=== PATIENT | female | born 1940 | race Caucasian/White ===

== ENCOUNTER → 2016-10-01 | Outpatient (REF) | payer MEDICARE, OTHER ==
[~2016-10-01] MED LIST: ASTELIN; CALCTAB7 PO; COLA100C2 OR; DILA100C OR; DRISDOL PO; EYECAP PO; FLON0.05; LEVO25TA2 OR; MULTIVIT PO; PRIMI25TA OR; VIT D 2000 PO
[2016-10-01 12:44] LABS: MEAN CORPUSCULAR HGB CONC 34.3 g/dl (32.0-36.5); MEAN CORPUSCULAR VOLUME 99.1 fl (80.0-96.0); RED CELL DISTRIBUTION WIDTH 12.9 % (11.5-14.5); WHITE BLOOD COUNT 5.3 K/mm3 (4.0-10.0)
[2016-10-01 13:17] LABS: ALBUMIN 3.4 GM/DL (3.2-5.2); ALBUMIN/GLOBULIN RATIO 1.06 (1.00-1.93); ALKALINE PHOSPHATASE 158 U/L (45-117); ALT/SGPT 22 U/L (12-78); ANION GAP 8 MEQ/L (8-16); AST/SGOT 16 U/L (15-37); BILIRUBIN,TOTAL 0.4 MG/DL (0.2-1.0); BLOOD UREA NITROGEN 12 MG/DL (7-18); CALCIUM LEVEL 8.5 MG/DL (8.8-10.2); CARBON DIOXIDE LEVEL 26 MEQ/L (21-32); CHLORIDE LEVEL 109 MEQ/L (98-107); FREE T4 0.89 NG/DL (0.76-1.46); GLOMERULAR FILTRATION RATE > 60.0 (>39); GLUCOSE, FASTING 99 MG/DL (83-110); SODIUM LEVEL 143 MEQ/L (136-145); TOTAL PROTEIN 6.6 GM/DL (6.4-8.2)
== END ==
LOC: M SFHCADAM 10:34
PROVIDERS: ATTEND Family Medicine
DX: R60.0 Localized edema (principal); E03.9 Hypothyroidism, unspecified
CPT/HCPCS: 80053; 83880; 84439; 84443; 85027; G0463

== ENCOUNTER → 2016-10-28 | Outpatient (CLI) | payer MEDICARE, OTHER ==
--- NOTE | 2016-10-30 15:10 | DEXA ---
AP SPINE L1 - L4 1.076 -1.0 0.8 LT FEMUR TOTAL 0.770 -1.9 -0.2 RT FEMUR TOTAL 0.777 -1.8 -0.1 TOTAL BODY TOTAL OTHER DUAL FEMUR FRAX* ASSESSMENT Risk factors: None. 10 year probability of fracture Major osteoporotic fracture 11.3 % Hip fracture 2.8 % COMMENTS: There is low bone density of the spine and hips. The increased density of the spine does not represent a significant change. The increased density of the left hip does represent a significant change. The increased density of the right hip does represent a significant change. The density of the spine has decreased 3.3% since the initial exam on 1999. The spine density has increased 1.2% since the most recent exam on 10/06/2008. The density of the left hip has increased 1.7% since the initial exam on 1999. The density of the left hip has increased 4.1% since the most recent exam on . The density of the right hip has increased 1.2% since the initial exam on 1999. The density of the right hip has increased 9.3% since the most recent exam on . FOLLOW-UP: Recommendation for the next bone density exam: 2 years. GEORGE
== END ==
LOC: M WHC 14:04
PROVIDERS: ATTEND Family Medicine
DX: M81.0 Age-related osteoporosis without current pathological fracture (principal)

== ENCOUNTER → 2016-11-04 | Outpatient (CLI) | payer MEDICARE, OTHER ==
--- NOTE | 2016-11-04 15:45 | REPMRS ---
Patient History The patient states she has not had a clinical breast exam in over a year. Patient is postmenopausal. Family history of colorectal cancer in mother at age 50 or over. Benign excisional biopsy of the left breast, 1967. Digital Woman Screen Mammo: November 04, 2016 - Exam #: [id number] Bilateral CC and MLO view(s) were taken. Technologist: Kim Tate, Technologist Prior study comparison: September 27, 2008, digital bilateral screening mammo performed at [facility]. January 15, 2005, bilateral screening mammogram performed at [facility]. FINDINGS: There are scattered fibroglandular densities. There is a fairly symmetric fibroglandular pattern in both breasts. There has been no interval development of masses, areas of architectural distortion or clusters of microcalcifications typical of malignancy. ASSESSMENT: BI-RADS/ACR category 2 mammogram. Benign finding(s). Recommendation Routine screening mammogram of both breasts in 1 year (for women over age 40). This mammogram was interpreted with the aid of an FDA-approved computer-aided dectection system. Electronically Signed By: Carlo Rtaliff MD 11/04/16 0929
== END ==
LOC: M WHC 13:50
PROVIDERS: ATTEND Family Medicine
DX: Z12.31 Encounter for screening mammogram for malignant neoplasm of breast (principal); R92.8 Other abnormal and inconclusive findings on diagnostic imaging of breast

== ENCOUNTER → 2016-12-11 | Outpatient (CLI) | payer MEDICARE, OTHER ==
[~2016-12-11] MED LIST changes: +AZEL0.1S3; +CENTTAB PO; +CHLO25TA GT; +DILA100C PO; +DRIS50002 PO; +LEVO-89 PO; +MAGN250T7 PO; +PRIMI25TA PO; +TYLETAB14 PO
--- NOTE | 2016-12-11 19:23 | REP ---
LEFT FOOT COMPLETE: 12/11/2016: Clinical history: Left foot pain. Trauma 4 days ago with hyperflexion left toes and bruising about the 5th digit. Comparison: 05/11/2007. Findings: Four views show plantar and Achilles tendons spurs. Contour changes of the distal metaphysis of the 3rd and 4th metatarsals are noted on oblique views. This may be old or acute. Please correlate clinically. Also some irregularity of the lateral aspect of the distal head of the 5th metatarsal. Phalanges and IP joints grossly intact except for some degenerative changes IP joint and MCP joint of the great toe. No other findings. Impression: 1. Questionable nondisplaced fractures with contour irregularities in distal metaphyses of the 3rd and 4th metatarsals and the lateral aspect 5th metatarsal head. Please correlate clinically for point tenderness and it may help differentiate between new and old. Signed by Tobias Martin MD 12/11/2016 08:26 P
== END ==
LOC: M WUC 17:03
PROVIDERS: ATTEND Physician Assistant
DX: M79.672 Pain in left foot (principal)

== ENCOUNTER 2017-01-08 14:59 | Emergency (ER) | payer MEDICARE, OTHER ==
[~2017-01-08] VITALS: Ht 160 cm; Wt 146.8 kg
[~2017-01-08 14:59] MED LIST changes: -AZEL0.1S3; -CENTTAB PO; -CHLO25TA GT; -DILA100C PO; -DRIS50002 PO; -LEVO-89 PO; -MAGN250T7 PO; -PRIMI25TA PO; -TYLETAB14 PO
[2017-01-08] MEDS ORDERED: DRIS50002 PO (15:21)
[2017-01-08] MEDS ORDERED: MAGN250T7 PO (15:21)
[2017-01-08] MEDS ORDERED: CENTTAB PO (15:21)
[2017-01-08] MEDS ORDERED: CHLO25TA GT (15:21)
[2017-01-08] MEDS ORDERED: AZEL0.1S3 (15:21)
[2017-01-08] MEDS ORDERED: LEVO-89 PO (15:21)
[2017-01-08] MEDS ORDERED: DILA100C PO (15:21)
[2017-01-08] MEDS ORDERED: PRIMI25TA PO (15:21)
[2017-01-08] MEDS ORDERED: ACETAMINOPH W/CODEINE #3 TAB UD PO ONE (16:30)
[2017-01-08] MEDS ORDERED: TYLETAB14 PO (17:57)
[2017-01-08 18:07] VITALS: BP 150/88
--- NOTE | 2017-01-08 18:27 | REP ---
LEFT SHOULDER: Three views of the left shoulder are performed. There is a mildly displaced fracture of the proximal humerus involving the greater tuberosity. No other acute fracture or dislocation is seen. There is mild narrowing and spurring at the glenohumeral and acromioclavicular joints. There appears to be some ill defined sclerosis centrally in the humeral head which could be related to the bone infarct or enchondroma. Signed by Carlo Ratliff MD 01/09/2017 09:01 A
--- NOTE | 2017-01-08 18:28 | REP ---
Chest x-ray: Two views: History: Fracture humeral head. Findings: PA and lateral views of the chest show clear symmetrically aerated lungs and sharp pleural angles. Heart is not enlarged. The aorta somewhat tortuous. Pulmonary vasculature is not increased. No significant bony abnormality is seen. Impression: No active disease. Signed by Azael Colvin MD 01/09/2017 08:52 A
--- NOTE | 2017-01-08 18:29 | REP ---
LEFT HUMERUS: 01/08/2017. Clinical history: Trauma, humeral head fracture. Comparison: Left shoulder series this date. Findings: The greater tuberosity humeral head fracture with avulsion fracture line extending down into the proximal humeral metaphysis (surgical neck) is noted. Shaft of the humerus without fracture, focal lesions. Distal portion also unremarkable. Impression: 1. Greater tuberosity humeral head avulsion fracture with a single large fragment with a few millimeters of distraction and displacement. No subluxation, dislocation about the shoulder or gross elbow abnormality. Signed by Tobias Martin MD 01/09/2017 04:43 P
--- NOTE | 2017-01-08 19:09 | REP ---
RIGHT KNEE SERIES: Four views of the right are performed. There is no acute fracture or dislocation. There is mild medial joint space narrowing. There is diffuse spurring. There is chondrocalcinosis. There is a large joint effusion. IMPRESSION: No fracture or dislocation. Degenerative changes. Large joint effusion. Signed by Carlo Ratliff MD 01/09/2017 09:02 A
--- NOTE | 2017-01-09 16:31 | ED PDOC ---
Post-Departure Follow-Up ncog faxed formal report of left shoulder film for fu Luciano Farrar MD Jan 09, 2017 16:31
== END 2017-01-08 19:23 | disposition home or self-care (01) ==
LOC: M ED 14:59
DX: S42.292A Other displaced fracture of upper end of left humerus, initial encounter for closed fracture (principal); M25.461 Effusion, right knee; W19.XXXA Unspecified fall, initial encounter; Y92.239 Unspecified place in hospital as the place of occurrence of the external cause; Y93.89 Activity, other specified; Y99.9 Unspecified external cause status; G40.909 Epilepsy, unspecified, not intractable, without status epilepticus; Z79.899 Other long term (current) drug therapy; Z88.0 Allergy status to penicillin

== ENCOUNTER → 2017-09-30 | Outpatient (REF) | payer MEDICARE, OTHER ==
[2017-09-30 13:34] LABS: TOTAL 25(OH) VITAMIN D 52.5 NG/ML (30.0-100.0)
[2017-09-30 13:41] LABS: ANION GAP 6 MEQ/L (8-16); BLOOD UREA NITROGEN 18 MG/DL (7-18); CALCIUM LEVEL 10.4 MG/DL (8.8-10.2); CARBON DIOXIDE LEVEL 32 MEQ/L (21-32); CHLORIDE LEVEL 105 MEQ/L (98-107); CREATININE FOR GFR 0.92 MG/DL (0.55-1.30); FREE T4 0.82 NG/DL (0.76-1.46); GLOMERULAR FILTRATION RATE > 60.0 (>39); GLUCOSE, FASTING 93 MG/DL (70-100); POTASSIUM SERUM 3.7 MEQ/L (3.5-5.1); SODIUM LEVEL 143 MEQ/L (136-145); THYROID STIMULATING HORMONE 0.394 uIU/ML (0.358-3.740)
== END ==
LOC: M SFHCADAM 10:16
DX: E03.9 Hypothyroidism, unspecified (principal); E55.9 Vitamin D deficiency, unspecified
CPT/HCPCS: 84443

== ENCOUNTER 2018-04-14 11:17 | Inpatient (IN) | payer MEDICARE, OTHER ==
[2018-04-14 12:19] LABS: BASO % 0.5 % (0.0-1.0); EOS # 0.1 10^3/uL (0.0-0.50); EOS % 1.6 % (0.0-3.0); HEMATOCRIT 35.5 % (36.0-47.0); HEMOGLOBIN 12.5 g/dl (12.0-15.5); IMMATURE GRANULOCYTE % 0.3 % (0-3.0); LYMPH # 1.4 10^3/uL (1.5-4.5); LYMPH % 21.6 % (24.0-44.0); MEAN CORPUSCULAR HEMOGLOBIN 33.9 pg (27.0-33.0); MEAN CORPUSCULAR HGB CONC 35.2 g/dl (32.0-36.5); MEAN CORPUSCULAR VOLUME 96.2 fl (80.0-96.0); MONO # 0.9 10^3/uL (0.0-0.8); MONO % 14.4 % (0.0-5.0); NEUTROPHILS # 3.9 10^3/uL (1.8-7.7); NEUTROPHILS % 61.6 % (36.0-66.0); PLATELET COUNT, AUTOMATED 213 10^3/uL (150-450); RED BLOOD COUNT 3.69 10^6/uL (4.00-5.40); RED CELL DISTRIBUTION WIDTH 12.8 % (11.5-14.5); WHITE BLOOD COUNT 6.3 10^3/uL (4.0-10.0)
[2018-04-14 12:43] LABS: ALBUMIN 3.3 GM/DL (3.2-5.2); ALBUMIN/GLOBULIN RATIO 1.03 (1.00-1.93); ALKALINE PHOSPHATASE 138 U/L (45-117); ALT/SGPT 30 U/L (12-78); ANION GAP 8 MEQ/L (8-16); AST/SGOT 34 U/L (7-37); BILIRUBIN,DIRECT 0.2 MG/DL (0.0-0.2); BILIRUBIN,TOTAL 0.5 MG/DL (0.2-1.0); BLOOD UREA NITROGEN 20 MG/DL (7-18); CALCIUM LEVEL 9.4 MG/DL (8.8-10.2); CARBON DIOXIDE LEVEL 29 MEQ/L (21-32); CHLORIDE LEVEL 103 MEQ/L (98-107); CREATININE FOR GFR 0.95 MG/DL (0.55-1.30); GLOMERULAR FILTRATION RATE > 60.0 (>39); GLUCOSE, FASTING 99 MG/DL (70-100); PHENYTOIN (DILANTIN) 16.6 UG/ML (10.0-20.0); POTASSIUM SERUM 3.2 MEQ/L (3.5-5.1); SODIUM LEVEL 140 MEQ/L (136-145); TOTAL PROTEIN 6.5 GM/DL (6.4-8.2)
[2018-04-14 14:00] LABS: KETONE, URINE AUTO RFX NEGATIVE (NEGATIVE); MUCUS, URINE RFX SMALL (NEGATIVE); NITRITE, URINE AUTO RFX NEGATIVE (NEGATIVE); RBC, URINE AUTO RFX 1 /HPF (0-3); SPECIFIC GRAVITY UR AUTO RFX 1.005 (1.002-1.035); SQUAM EPITHELIAL CELL UR AURFX 1 /HPF (0-6); WBC, URINE AUTO RFX 7 /HPF (0-3)
[2018-04-14] MEDS: ACETAMINOPHEN TAB 650MG DOSE (2X325MG) PO (14:12)
[2018-04-14 14:46] LABS: LEUKOCYTE ESTERASE UR AUTO RFX 1+ (NEGATIVE)
[2018-04-14] MEDS: POTASSIUM CHLORIDE 10 MEQ SR TABLET PO (19:12)
[2018-04-14] MEDS: PHENYTOIN ER 100 MG CAP PO (21:20)
[2018-04-14] MEDS: PRIMIDONE 250 MG TAB PO (23:18)
[2018-04-15 05:57] LABS: ALBUMIN/GLOBULIN RATIO 0.94 (1.00-1.93); ALKALINE PHOSPHATASE 122 U/L (45-117); ALT/SGPT 31 U/L (12-78); ANION GAP 7 MEQ/L (8-16); AST/SGOT 34 U/L (7-37); BILIRUBIN,TOTAL 0.4 MG/DL (0.2-1.0); BLOOD UREA NITROGEN 17 MG/DL (7-18); CALCIUM LEVEL 9.6 MG/DL (8.8-10.2); CARBON DIOXIDE LEVEL 27 MEQ/L (21-32); CHLORIDE LEVEL 105 MEQ/L (98-107); CREATININE FOR GFR 0.75 MG/DL (0.55-1.30); GLOMERULAR FILTRATION RATE > 60.0 (>39); GLUCOSE, FASTING 102 MG/DL (70-100); POTASSIUM SERUM 3.4 MEQ/L (3.5-5.1); SODIUM LEVEL 139 MEQ/L (136-145); TOTAL PROTEIN 6.2 GM/DL (6.4-8.2)
[2018-04-15] MEDS: LEVOTHYROXINE 100MCG TABLET (0.1MG) PO (06:10)
[2018-04-15] MEDS: ENOXAPARIN 40 MG/0.4 ML SYRINGE (J1650) SC (09:34)
[2018-04-15] MEDS: PRIMIDONE 250 MG TAB PO ×2 (09:34→21:46)
[2018-04-15] MEDS: PARoxetine 20 MG TAB PO (09:34)
[2018-04-15] MEDS: CHLORTHALIDONE 25 MG TAB PO (09:34)
[2018-04-15] MEDS: PHENYTOIN ER 100 MG CAP PO ×2 (09:34→21:47)
[2018-04-15] MEDS: MULTIVITAMINS/MINERALS THERAP 1 TAB PO (09:34)
[2018-04-15] MEDS: POTASSIUM CHLORIDE 10 MEQ SR TABLET PO (12:31)
[2018-04-15] MEDS: ACETAMINOPHEN 325 MG TAB PO (12:37)
[2018-04-16] MEDS: LEVOTHYROXINE 100MCG TABLET (0.1MG) PO (06:03)
[2018-04-16 06:33] LABS: ANION GAP 7 MEQ/L (8-16); BLOOD UREA NITROGEN 20 MG/DL (7-18); CALCIUM LEVEL 9.4 MG/DL (8.8-10.2); CARBON DIOXIDE LEVEL 28 MEQ/L (21-32); CHLORIDE LEVEL 105 MEQ/L (98-107); CREATININE FOR GFR 0.93 MG/DL (0.55-1.30); GLOMERULAR FILTRATION RATE > 60.0 (>39); GLUCOSE, FASTING 97 MG/DL (70-100); POTASSIUM SERUM 3.9 MEQ/L (3.5-5.1); SODIUM LEVEL 140 MEQ/L (136-145)
[2018-04-16] MEDS: POTASSIUM CHLORIDE 10 MEQ SR TABLET PO (10:47)
[2018-04-16] MEDS: PRIMIDONE 250 MG TAB PO ×2 (10:47→21:47)
[2018-04-16] MEDS: CHLORTHALIDONE 25 MG TAB PO (10:47)
[2018-04-16] MEDS: ENOXAPARIN 40 MG/0.4 ML SYRINGE (J1650) SC (10:48)
[2018-04-16] MEDS: MULTIVITAMINS/MINERALS THERAP 1 TAB PO (10:48)
[2018-04-16] MEDS: PARoxetine 20 MG TAB PO (10:48)
[2018-04-16] MEDS: PREVNAR 13 VACCINE SYRINGE (CPT CODE:90670) IM (10:49)
[2018-04-16] MEDS: PHENYTOIN ER 100 MG CAP PO ×2 (10:51→21:46)
[2018-04-16] MEDS: ACETAMINOPHEN 325 MG TAB PO (16:07)
[2018-04-17] MEDS: LEVOTHYROXINE 100MCG TABLET (0.1MG) PO (06:22)
[2018-04-17 06:58] LABS: HEMATOCRIT 32.8 % (36.0-47.0); HEMOGLOBIN 11.3 g/dl (12.0-15.5); MEAN CORPUSCULAR HEMOGLOBIN 33.8 pg (27.0-33.0); MEAN CORPUSCULAR HGB CONC 34.5 g/dl (32.0-36.5); MEAN CORPUSCULAR VOLUME 98.2 fl (80.0-96.0); PLATELET COUNT, AUTOMATED 210 10^3/uL (150-450); RED BLOOD COUNT 3.34 10^6/uL (4.00-5.40); RED CELL DISTRIBUTION WIDTH 12.8 % (11.5-14.5); WHITE BLOOD COUNT 5.5 10^3/uL (4.0-10.0)
[2018-04-17 07:17] LABS: ANION GAP 8 MEQ/L (8-16); BLOOD UREA NITROGEN 19 MG/DL (7-18); CALCIUM LEVEL 8.7 MG/DL (8.8-10.2); CARBON DIOXIDE LEVEL 28 MEQ/L (21-32); CHLORIDE LEVEL 106 MEQ/L (98-107); CREATININE FOR GFR 0.82 MG/DL (0.55-1.30); GLOMERULAR FILTRATION RATE > 60.0 (>39); GLUCOSE, FASTING 91 MG/DL (70-100); POTASSIUM SERUM 3.5 MEQ/L (3.5-5.1); SODIUM LEVEL 142 MEQ/L (136-145)
[2018-04-17 07:38] LABS: TOTAL PROTEIN 5.8 GM/DL (6.4-8.2)
[2018-04-17] MEDS: PHENYTOIN ER 100 MG CAP PO ×2 (09:00→20:50)
[2018-04-17] MEDS: CHLORTHALIDONE 25 MG TAB PO (09:11)
[2018-04-17] MEDS: PRIMIDONE 250 MG TAB PO ×2 (09:11→20:50)
[2018-04-17] MEDS: PARoxetine 20 MG TAB PO (09:11)
[2018-04-17] MEDS: ENOXAPARIN 40 MG/0.4 ML SYRINGE (J1650) SC (09:11)
[2018-04-17] MEDS: MULTIVITAMINS/MINERALS THERAP 1 TAB PO (09:12)
[2018-04-17] MEDS: POTASSIUM CHLORIDE 10 MEQ SR TABLET PO (09:12)
[2018-04-17 10:28] LABS: VITAMIN B12 LEVEL 200 PG/ML (247-911)
[2018-04-17 11:49] LABS: ALBUMIN 3.14 GM/DL (3.29-5.55); ALBUMIN % 54.2 % (55.8-66.1); ALPHA-1-GLOBULIN % 5.6 % (2.9-4.9); ALPHA-1-GLOBULINS 0.32 GM/DL (0.17-0.41); ALPHA-2-GLOBULINS % 12.1 % (7.1-11.8); BETA-1-GLOBULINS 0.32 GM/DL (0.28-0.60); BETA-1-GLOBULINS % 5.6 % (4.7-7.2); BETA-2-GLOBULINS 0.37 GM/DL (0.19-0.55); BETA-2-GLOBULINS % 6.4 % (3.2-6.5); GAMMA GLOBULIN % 16.1 % (11.1-18.8); GAMMA GLOBULINS 0.93 GM/DL (0.65-1.58)
[2018-04-17] MEDS: ACETAMINOPHEN 325 MG TAB PO ×2 (12:41→20:53)
[2018-04-18] MEDS: LEVOTHYROXINE 100MCG TABLET (0.1MG) PO (05:37)
[2018-04-18 07:00] LABS: ANION GAP 6 MEQ/L (8-16); BLOOD UREA NITROGEN 19 MG/DL (7-18); CALCIUM LEVEL 8.6 MG/DL (8.8-10.2); CARBON DIOXIDE LEVEL 27 MEQ/L (21-32); CHLORIDE LEVEL 107 MEQ/L (98-107); CREATININE FOR GFR 0.78 MG/DL (0.55-1.30); GLOMERULAR FILTRATION RATE > 60.0 (>39); GLUCOSE, FASTING 97 MG/DL (70-100); POTASSIUM SERUM 3.5 MEQ/L (3.5-5.1); SODIUM LEVEL 140 MEQ/L (136-145)
[2018-04-18] MEDS: MULTIVITAMINS/MINERALS THERAP 1 TAB PO (09:30)
[2018-04-18] MEDS: PRIMIDONE 250 MG TAB PO ×2 (09:30→20:18)
[2018-04-18] MEDS: ENOXAPARIN 40 MG/0.4 ML SYRINGE (J1650) SC (09:30)
[2018-04-18] MEDS: CHLORTHALIDONE 25 MG TAB PO (09:30)
[2018-04-18] MEDS: PARoxetine 20 MG TAB PO (09:30)
[2018-04-18] MEDS: PHENYTOIN ER 100 MG CAP PO ×2 (09:31→20:18)
[2018-04-18] MEDS: POTASSIUM CHLORIDE 10 MEQ SR TABLET PO (09:31)
[2018-04-18] MEDS: ACETAMINOPHEN 325 MG TAB PO ×2 (10:49→21:08)
[2018-04-19] MEDS: LEVOTHYROXINE 100MCG TABLET (0.1MG) PO (06:01)
[2018-04-19] MEDS: PARoxetine 20 MG TAB PO (09:19)
[2018-04-19] MEDS: PHENYTOIN ER 100 MG CAP PO ×2 (09:19→20:08)
[2018-04-19] MEDS: CHLORTHALIDONE 25 MG TAB PO (09:20)
[2018-04-19] MEDS: ENOXAPARIN 40 MG/0.4 ML SYRINGE (J1650) SC (09:20)
[2018-04-19] MEDS: MULTIVITAMINS/MINERALS THERAP 1 TAB PO (09:20)
[2018-04-19] MEDS: POTASSIUM CHLORIDE 10 MEQ SR TABLET PO (09:20)
[2018-04-19] MEDS: PRIMIDONE 250 MG TAB PO ×2 (09:20→20:08)
[2018-04-20] MEDS: LEVOTHYROXINE 100MCG TABLET (0.1MG) PO (06:06)
[2018-04-20 06:11] LABS: HEMATOCRIT 33.4 % (36.0-47.0); HEMOGLOBIN 11.5 g/dl (12.0-15.5); MEAN CORPUSCULAR HEMOGLOBIN 33.2 pg (27.0-33.0); MEAN CORPUSCULAR HGB CONC 34.4 g/dl (32.0-36.5); MEAN CORPUSCULAR VOLUME 96.5 fl (80.0-96.0); PLATELET COUNT, AUTOMATED 217 10^3/uL (150-450); RED BLOOD COUNT 3.46 10^6/uL (4.00-5.40); WHITE BLOOD COUNT 4.4 10^3/uL (4.0-10.0)
[2018-04-20] MEDS: PRIMIDONE 250 MG TAB PO ×2 (08:48→21:08)
[2018-04-20] MEDS: PHENYTOIN ER 100 MG CAP PO ×2 (08:48→21:08)
[2018-04-20] MEDS: MULTIVITAMINS/MINERALS THERAP 1 TAB PO (08:49)
[2018-04-20] MEDS: PARoxetine 20 MG TAB PO (08:49)
[2018-04-20] MEDS: ENOXAPARIN 40 MG/0.4 ML SYRINGE (J1650) SC (08:49)
[2018-04-20] MEDS: CHLORTHALIDONE 25 MG TAB PO (08:49)
[2018-04-20] MEDS: POTASSIUM CHLORIDE 10 MEQ SR TABLET PO (08:50)
[2018-04-20] MEDS: ACETAMINOPHEN 325 MG TAB PO (21:10)
[2018-04-21] MEDS: LEVOTHYROXINE 100MCG TABLET (0.1MG) PO (05:43)
[2018-04-21] MEDS: CHLORTHALIDONE 25 MG TAB PO (09:22)
[2018-04-21] MEDS: PRIMIDONE 250 MG TAB PO ×2 (09:22→20:52)
[2018-04-21] MEDS: POTASSIUM CHLORIDE 10 MEQ SR TABLET PO (09:22)
[2018-04-21] MEDS: PARoxetine 20 MG TAB PO (09:23)
[2018-04-21] MEDS: MULTIVITAMINS/MINERALS THERAP 1 TAB PO (09:23)
[2018-04-21] MEDS: PHENYTOIN ER 100 MG CAP PO ×2 (09:24→20:53)
[2018-04-21] MEDS: ENOXAPARIN 40 MG/0.4 ML SYRINGE (J1650) SC (09:24)
[2018-04-21] MEDS: ACETAMINOPHEN 325 MG TAB PO ×2 (14:40→20:52)
[2018-04-22] MEDS: LEVOTHYROXINE 100MCG TABLET (0.1MG) PO (06:27)
[2018-04-22] MEDS: PRIMIDONE 250 MG TAB PO (09:09)
[2018-04-22] MEDS: PARoxetine 20 MG TAB PO (09:10)
[2018-04-22] MEDS: PHENYTOIN ER 100 MG CAP PO (09:10)
[2018-04-22] MEDS: POTASSIUM CHLORIDE 10 MEQ SR TABLET PO (09:11)
[2018-04-22] MEDS: CHLORTHALIDONE 25 MG TAB PO (09:11)
[2018-04-22] MEDS: MULTIVITAMINS/MINERALS THERAP 1 TAB PO (09:11)
[2018-04-22] MEDS: ENOXAPARIN 40 MG/0.4 ML SYRINGE (J1650) SC (09:12)
== END 2018-04-22 12:50 | disposition home health service (06) | DRG 92 ==
LOC: M MS5PR 04-19 17:15 → M MS4PR 04-16 17:08 → M ED 11:17 → M ED INP 16:11 → M PCU 22:06
DX: R29.6 Repeated falls (principal); Z68.43 Body mass index [BMI] 50.0-59.9, adult; R53.81 Other malaise; E87.6 Hypokalemia; E66.01 Morbid (severe) obesity due to excess calories; M17.2 Bilateral post-traumatic osteoarthritis of knee; M25.461 Effusion, right knee; M25.462 Effusion, left knee; E53.8 Deficiency of other specified B group vitamins; E03.9 Hypothyroidism, unspecified; E78.5 Hyperlipidemia, unspecified; G40.909 Epilepsy, unspecified, not intractable, without status epilepticus; Z88.0 Allergy status to penicillin; E04.1 Nontoxic single thyroid nodule

== ENCOUNTER → 2018-04-30 | Outpatient (REF) | payer MEDICARE, OTHER ==
[~2018-04-30] MED LIST changes: +AZEL0.1S NARES; +AZEL0.1S3; +B-12100010 PO; +CENTTAB PO; +CHLO25TA PO; +DILA100C PO; +DRIS50003 PO; +KLOR10TA76 PO; +LEVO-89 PO; +MAGN250T3 PO; +MAGN250T7 PO; +PAXI20TA29 PO; +PRIM250T8 PO; +PRIMI25TA PO; +TYLE325T5 PO; +TYLETAB14 PO
[2018-04-30 13:26] LABS: BLOOD UREA NITROGEN 19 MG/DL (7-18); CALCIUM LEVEL 10.4 MG/DL (8.8-10.2); CARBON DIOXIDE LEVEL 31 MEQ/L (21-32); CHLORIDE LEVEL 103 MEQ/L (98-107); CREATININE FOR GFR 0.95 MG/DL (0.55-1.30); GLOMERULAR FILTRATION RATE > 60.0 (>39); GLUCOSE, FASTING 94 MG/DL (70-100); MAGNESIUM LEVEL 2.5 MG/DL (1.8-2.4); POTASSIUM SERUM 4.2 MEQ/L (3.5-5.1); SODIUM LEVEL 142 MEQ/L (136-145)
== END ==
LOC: M SFHCADAM 10:12
PROVIDERS: ATTEND Physician Assistant
DX: R60.9 Edema, unspecified (principal); E87.6 Hypokalemia; E53.8 Deficiency of other specified B group vitamins
CPT/HCPCS: 80048; 83735; 86256; 96372; 99495; G0463; J3420

== ENCOUNTER → 2019-03-25 | Outpatient (REF) | payer MEDICARE, OTHER ==
[2019-03-25 17:00] LABS: HEMATOCRIT 36.4 % (36.0-47.0); HEMOGLOBIN 12.2 g/dl (12.0-15.5); MEAN CORPUSCULAR HEMOGLOBIN 33.1 pg (27.0-33.0); MEAN CORPUSCULAR HGB CONC 33.5 g/dl (32.0-36.5); MEAN CORPUSCULAR VOLUME 98.6 fl (80.0-96.0); PLATELET COUNT, AUTOMATED 234 10^3/uL (150-450); RED BLOOD COUNT 3.69 10^6/uL (4.00-5.40); WHITE BLOOD COUNT 6.7 10^3/uL (4.0-10.0)
[2019-03-25 17:38] LABS: ALBUMIN 3.4 GM/DL (3.2-5.2); ALT/SGPT 26 U/L (12-78); BILIRUBIN,TOTAL 0.4 MG/DL (0.2-1.0); BLOOD UREA NITROGEN 13 MG/DL (7-18); CALCIUM LEVEL 9.7 MG/DL (8.8-10.2); CARBON DIOXIDE LEVEL 28 MEQ/L (21-32); CHLORIDE LEVEL 110 MEQ/L (98-107); CHOLESTEROL LEVEL 174 MG/DL (<200); CHOLESTEROL RISK RATIO 3.107 (<5); CREATININE FOR GFR 0.75 MG/DL (0.55-1.30); FREE T4 0.74 NG/DL (0.76-1.46); GLOMERULAR FILTRATION RATE > 60.0 (>39); GLUCOSE, FASTING 91 MG/DL (70-100); HDL CHOLESTEROL 56 MG/DL (>40); LDL CHOLESTEROL 100 MG/DL (<100); NON-HDL-C 118 MG/DL; PHENYTOIN (DILANTIN) 14.3 UG/ML (10.0-20.0); POTASSIUM SERUM 4.1 MEQ/L (3.5-5.1); SODIUM LEVEL 140 MEQ/L (136-145); TOTAL 25(OH) VITAMIN D 26.8 NG/ML (30.0-100.0); TOTAL PROTEIN 6.9 GM/DL (6.4-8.2); TRIGLYCERIDES LEVEL 91 MG/DL (<150)
== END ==
LOC: M SFHCADAM 14:48
PROVIDERS: ATTEND Family Medicine
DX: F43.23 Adjustment disorder with mixed anxiety and depressed mood (principal); E03.9 Hypothyroidism, unspecified; E78.2 Mixed hyperlipidemia; G40.89 Other seizures; E55.9 Vitamin D deficiency, unspecified; Z23 Encounter for immunization
CPT/HCPCS: 80053; 80061; 80185; 80188; 82306; 84439; 84443; 85027; 90682; G0008; G0463

== ENCOUNTER → 2019-03-30 | Outpatient (CLI) | payer MEDICARE, OTHER ==
--- NOTE | 2019-03-31 08:52 | REP ---
CT abdomen and pelvis without IV or oral contrast: History: Adrenal mass. Comparison CT study of the chest April 14, 2018. No other comparison studies are available. 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 Lung bases are clear. The liver and the spleen are normal in size homogeneous in texture on noncontrast study. The right adrenal gland is normal. Left adrenal gland contains a lightly heterogeneous relatively low density well circumscribed 4.4 x 3.2 x 3.4 cm nodule. Mean Hounsfield unit density within the nodule is negative 2.8. This is compatible with a benign adrenal adenoma. It is unchanged from the April 14, 2018 prior study. No abnormalities noted in the pancreas. There is a cyst in the lateral aspect of the left kidney which measures 1.9 cm in diameter. This is also unchanged from the comparison CT. No retroperitoneal mass or adenopathy is seen. Normal caliber aorta. Normal appendix is seen. No uterine or adnexal abnormality is seen. Urinary bladder is unremarkable. Impression: Benign stable adrenal adenoma left side unchanged from the comparison study. Small stable left renal cyst. No acute intra-abdominal abnormality. Electronically Signed by Azael Colvin MD 03/31/2019 12:51 P
== END ==
LOC: M RAD 17:45
PROVIDERS: ATTEND Family Medicine
DX: E27.8 Other specified disorders of adrenal gland (principal)

== ENCOUNTER → 2019-06-11 | Outpatient (CLI) | payer MEDICARE, OTHER ==
[~2019-06-11] MED LIST changes: +APAP325T4 PO; +POTA10TA16 PO; +PRED20TA PO
--- NOTE | 2019-06-11 17:11 | REP ---
Right foot four views: Comparison is 03/29/2005. I suspect there is soft tissue edema over the dorsum. This should be confirmed clinically. There is mild joint space narrowing of the PIP, DIP MTP articulations consistent with early arthropathy. There is no fracture or dislocation. No calcification of foreign body. There are calcaneal plantar and Achilles spurs, unchanged. Impression: Arthropathy as described. No fracture or dislocation. Possible soft tissue edema over the dorsum. Electronically Signed by Carlo Hall MD 06/11/2019 05:03 P
--- NOTE | 2019-06-11 17:16 | REP ---
Right ankle four views: Comparison is 03/29/2005. There is abundant circumferential soft tissue versus soft tissue edema. Mineralization and joint spaces are unremarkable. There is no fracture or dislocation. There are calcaneal plantar and Achilles spurs, this is unchanged. Impression: Essentially negative right ankle except for abundant soft tissues versus soft tissue edema. Electronically Signed by Carlo Hall MD 06/11/2019 05:08 P
== END ==
LOC: M ADAMS 15:14
PROVIDERS: ATTEND Nurse Practitioner Family
DX: M19.071 Primary osteoarthritis, right ankle and foot (principal); M77.31 Calcaneal spur, right foot; M76.61 Achilles tendinitis, right leg

== ENCOUNTER 2019-06-14 16:43 | Inpatient (IN) | payer MEDICARE, OTHER ==
[~2019-06-14] VITALS: Ht 165.1 cm; Wt 141.7 kg
[~2019-06-14 16:43] MED LIST changes: -APAP325T4 PO; -POTA10TA16 PO; -PRED20TA PO
[2019-06-14 17:56] LABS: BASO % 0.4 % (0.0-1.0); EOS # 0.1 10^3/uL (0.0-0.5); HEMATOCRIT 38.2 % (36.0-47.0); LYMPH # 1.9 10^3/uL (1.5-5.0); LYMPH % 26.9 % (24.0-44.0); MEAN CORPUSCULAR HEMOGLOBIN 33.2 pg (27.0-33.0); MEAN CORPUSCULAR VOLUME 97.4 fl (80.0-96.0); MONO # 0.9 10^3/uL (0.0-0.8); MONO % 12.6 % (0.0-5.0); NEUTROPHILS # 4.1 10^3/uL (1.5-8.5); NEUTROPHILS % 57.5 % (36.0-66.0); PLATELET COUNT, AUTOMATED 204 10^3/uL (150-450); RED BLOOD COUNT 3.92 10^6/uL (4.00-5.40); WHITE BLOOD COUNT 7.1 10^3/uL (4.0-10.0)
--- NOTE | 2019-06-14 18:11 | REPVR ---
PROCEDURE INFORMATION: Exam: CT Head Without Contrast Exam date and time: 06/14/2019 5:14 PM Age: 78 years old Clinical indication: Injury or trauma; Fall; Initial encounter; Blunt trauma (contusions or hematomas); Additional info: Fell and hit head TECHNIQUE: Imaging protocol: Computed tomography of the head without contrast. Radiation optimization: All CT scans at this facility use at least one of these dose optimization techniques: automated exposure control; mA and/or kV adjustment per patient size (includes targeted exams where dose is matched to clinical indication); or iterative reconstruction. COMPARISON: CT Head without contrast 04/14/2018 12:41 PM FINDINGS: Brain: There is no evidence of intracranial bleed. There is a 1.6 cm calcified mass at the falx between the frontal lobes. This is slightly larger than the CT examination of 2018. This lesion is most consistent with a calcified meningioma. There is no evidence of mass effect. There is calcification of the carotid siphon bilaterally consistent with atherosclerotic changes. Ventricles: Normal appearing ventricles. Bones/joints: There is no evidence of fracture. Sinuses: Clear paranasal sinuses. Mastoid air cells: Clear mastoid air cells. Soft tissues: Unremarkable. IMPRESSION: 1. No evidence of fracture. 2. No evidence of bleed. 3. 1.6 cm chronic calcified meningioma at the falx anterior in position similar to the previous exam of 2018. Electronically signed by: Jani Maria On 06/14/2019 18:11:05 PM
[2019-06-14 18:21] LABS: ALBUMIN 3.3 GM/DL (3.2-5.2); ALT/SGPT 23 U/L (12-78); BILIRUBIN,TOTAL 0.3 MG/DL (0.2-1.0); BLOOD UREA NITROGEN 21 MG/DL (7-18); CALCIUM LEVEL 9.6 MG/DL (8.8-10.2); CARBON DIOXIDE LEVEL 30 MEQ/L (21-32); CHLORIDE LEVEL 104 MEQ/L (98-107); CK-MB VALUE MASS < 1.0 NG/ML (<3.6); CPK CREATINE PHOSPHOKINASE 39 U/L (26-192); CREATININE FOR GFR 0.86 MG/DL (0.55-1.30); GLOMERULAR FILTRATION RATE > 60.0 (>39); GLUCOSE, FASTING 97 MG/DL (70-100); MAGNESIUM LEVEL 2.1 MG/DL (1.8-2.4); MB/CK RELATIVE INDEX 2.56 (< OR =4); PHENYTOIN (DILANTIN) 24.1 UG/ML (10.0-20.0); POTASSIUM SERUM 3.2 MEQ/L (3.5-5.1); SODIUM LEVEL 139 MEQ/L (136-145); TOTAL PROTEIN 6.5 GM/DL (6.4-8.2); TROPONIN I < 0.02 NG/ML (< 0.10)
[2019-06-14] MEDS ORDERED: APAP325T4 PO (19:28)
[2019-06-14] MEDS ORDERED: POTA10TA16 PO (19:28)
[2019-06-14] MEDS ORDERED: PRED20TA PO (19:29)
[2019-06-14] MEDS ORDERED: ACETAMINOPHEN TAB 650MG DOSE (2X325MG) PO PRN (21:00)
[2019-06-14 23:00] VITALS: BP 131/68
[2019-06-14] MEDS ORDERED: POTASSIUM CHLORIDE 10 MEQ SR TABLET PO ONE (23:00)
[2019-06-14] MEDS: PRIMIDONE 250 MG TAB PO SCH (23:23)
[2019-06-14] MEDS: POTASSIUM CHLORIDE 10 MEQ SR TABLET PO SCH (23:23)
[2019-06-14] MEDS: NS 1,000 ML IV SCH (23:24)
--- NOTE | 2019-06-14 23:54 | HPEPDOC ---
General Date of Admission Jun 14, 2019 at 20:55 Date of Service: Jun 14, 2019 Attending Physician: ABDOULAYE RUIZ MD Chief Complaint The patient is a 78-year-old female admitted with a reason for visit of Dizziness;Phenytoin Toxicity;Seizure D/O. Source: Patient, Family Exam Limitations: No limitations Timing/Duration: Day(s) (3), Getting worse Associated Symptoms: Dizziness History of Present Illness 78 yo W with long standing history of epilepsy on dilantin/primodine with last known seizure 20y + ago, morbid obesity, RAZ, OA , HTN, HLD, depression who presents with dizziness and vertigo of 3 days duration, reporting no recent illness, URI symptoms, and only med change being having recently been starte don prednisone for her arthritis. She reports that the dizziness is not orthostatic in nature but is with moving her head with a spinning sensation thankfully thus far without nausea and emesis. She has not had any recent fever, chills, tremors, dysuria, change in eating and drinking habits, falls. She lives with her son who recently moved in after her , walks with a cane around the house and walker when outside. In the ED< vitals were Bp 155/72, HR 73, RR18, afebrile, saturating 97% on RA. Workup was notable for a stable calcified mengioma on CT head without acute pathology, elevated phenytoin level to 24.1 that was normal in 03/2019, WBC 7.1 Hgb 13, platelets 204, na 139, K 3.2, Cr 0.86, glucose 97, mag 2.1, normal LFTs. She is now being admitted for acute dizziness and vertigo 2/2 phenytoin toxicity with pending primodine levels. Home Medications Scheduled Azelastine HCl (Azelastine HCl) 0.1 % Spr, 2 SPRAY NARES QHS, (Reported) Chlorthalidone (Chlorthalidone) 25 Mg Tab, 25 MG PO DAILY, (Reported) Phenytoin Sodium Extended (Dilantin) 100 Mg Cap, 200 MG PO BID, (Reported) Potassium Chloride (Potassium Chloride) 10 Meq Tab.er.prt, 10 MEQ PO BID, (Reported) Prednisone (Prednisone) 20 Mg Tablet, 20 MG PO DAILY, (Reported) DAILY FOR 4 DAYS, STARTED 06/11/19 Primidone (Mysoline) 250 Mg Tab, 250 MG PO QAM, (Reported) Primidone (Primidone) 250 Mg Tab, 500 MG PO QHS, (Reported) Scheduled PRN Acetaminophen (Acetaminophen) 325 Mg Tablet, 650 MG PO Q4H PRN for PAIN, (Reported) Allergies Coded Allergies: Penicillins (Verified Allergy, Mild, PARENTERAL = RASH, CAN TAKE ORAL PENICILLIN, 06/14/19) Past Medical History Medical History epilepsy on dilantin/primodine with last known seizure 20y + ago, morbid obesity, RAZ, OA , HTN, HLD Surgical History benign breast cyst removal Family History Significant Family History: No pertinent family hx Social History * Smoker: Denies Alcohol: rarely Drugs: denies Recent Travel/Sick Contacts: Denies: Recent travel, Recent sick contacts Psychosocial History: Depression A-FIB/CHADSVASC A-FIB History Current/History of A-Fib/PAF?: No Current PO Anticoag Therapy: No Age/Risk Factor Scoring CHADSVASC: CHADSVASC Response (Comments) Value Age Risk Factor Age >/= 75 years old 2 Gender Risk Factor Female 1 Hx of CHF No 0 Hx of HTN Yes 1 Hx of Stroke/TIA/or VTE No 0 Hx of Diabetes No 0 Total 4 Treatment Treatment ordered: NONE Reason Anticoagulant not given: Not indicated/[id number] Review of Systems Constitutional: Denies: Chills, Fever, Night Sweats Eyes: Denies: Pain, Vision change ENT: Denies: Head Aches, Ear Pain, Dysphagia Skin: Denies: Rash, Lesions, Breakdown Pulmonary: Denies: Dyspnea, Cough Cardiovascular: Denies: Chest Pain, Palpitations, Orthopnea, Paroxysmal Noc. Dyspnea, Lt Headedness Gastrointestinal: Denies: Nausea, Vomiting, Abdominal Pain, Diarrhea Genitourinary: Denies: Dysuria, Frequency, Incontinence, Retention Hematologic: Denies: Bruising, Bleeding Excessively Endocrine: Denies: Polydipsia, Polyphagia, Polyuria, Heat Intolerance, Cold Intolerance, Other Endocrine Sx Musculoskeletal: Denies: Neck Pain, Back Pain, Joint Pain, Muscle Pain, Spasms Neurological: Reports: Other Symptoms (dizziness and vertigo) Psych: Reports: Mood Normal, Depression; Denies: Memory Issues Physical Examination General Exam: Positive: Alert, No Acute Distress, Other (morbidly obese) Eye Exam: Positive: PERRLA, Conjunctiva & lids normal, EOMI; Negative: Sclera icteric ENT Exam: Positive: Atraumatic, Mucous membr. moist/pink, Pharynx Normal Neck Exam: Positive: Supple; Negative: JVD, thyromegaly Chest Exam: Positive: Clear to auscultation, Normal air movement; Negative: Rales, Rhonchi, Wheezing, Diminished Heart Exam: Positive: Rate Normal, Regular Rhythm, Normal S1, Normal S2; Negative: Murmurs, Rubs Telemetry: Positive: No significant arrhythmia Abdomen Exam: Positive: Normal bowel sounds, Soft, Other (obese); Negative: Tenderness, Hepatospenomegaly Extremity Exam: Positive: Normal pulses; Negative: Clubbing, Cyanosis, Edema Skin Exam: Positive: Nl turgor and temperature; Negative: Breakdown, Lesion Neuro Exam: Positive: Normal Speech, Strength at 5/5 X4 ext, Normal Tone, Sensation Intact, Cranial Nerves 3-12 NL, Reflexes 2+, Other (+[place]) Psych Exam: Positive: Mental status NL, Mood NL, Oriented x 3 Vital Signs Vital Signs Date Time Temp Pulse Resp B/P (MAP) Pulse Ox O2 Delivery O2 Flow Rate FiO2 06/14/19 22:30 74 122/55 (77) 92 06/14/19 18:08 17 Room Air 06/14/19 17:21 98.7 Laboratory Data Labs 24H Laboratory Tests 2 06/14/19 17:35: Immature Granulocyte % (Auto) 0.6, Neutrophils (%) (Auto) 57.5, Lymphocytes (%) (Auto) 26.9, Monocytes (%) (Auto) 12.6H, Eosinophils (%) (Auto) 2.0, Basophils (%) (Auto) 0.4, Neutrophils # (Auto) 4.1, Lymphocytes # (Auto) 1.9, Monocytes # (Auto) 0.9H, Eosinophils # (Auto) 0.1, Basophils # (Auto) 0.0, Nucleated Red Blood Cells % (auto) 0.0, Anion Gap 5L, Glomerular Filtration Rate > 60.0, Calcium Level 9.6, Magnesium Level 2.1, Total Bilirubin 0.3, Aspartate Amino Transf (AST/SGOT) 22, Alanine Aminotransferase (ALT/SGPT) 23, Alkaline Phospha tase 141H, Total Creatine Kinase 39, Creatine Kinase MB < 1.0, Creatine Kinase MB Relative Index 2.56, Troponin I < 0.02, Total Protein 6.5, Albumin 3.3, Albumin/Globulin Ratio 1.03, Phenytoin (Dilantin) Level 24.1H 06/14/19 18:53: CBC/BMP Laboratory Tests 06/14/19 17:35 Assessment/Plan 78 yo W with long standing history of epilepsy on dilantin/primodine with last known seizure 20y + ago, morbid obesity, RAZ, OA , HTN, HLD, depression who presents with dizziness and vertigo of 3 days duration, reporting no recent illness, URI symptoms, and only med change being having recently been started on prednisone for her arthritis found to have acute vertigo with supratherapeutic dilantin levels c/f toxicity with otherwise stable head CT and unremakable basic labs. Vertigo: -No recent URI symptoms, fever, chills, non focal neuro exam otherwise outside of +[place], with elevated phenytoin levels --> likely 2/2 to phenytoin toxicity -1L NS, hold dilantin -repeat dilantin levels with AM labs -follow up primodine level -PT, OT -CT head stable with no acute pathology with stable calcified meningioma -Low suspicion for BPPV, vestibular neuritis Epilepsy: -will continue primodine for now, holding dilantin given elevated levels -seizure precautions RAZ: -CPAP QHS HTN: -continue home chlorthalidone Hypokalemia: -replete and continue home KCl BID -check AM BMP OA: -hold steroids for now -tylenol PRN DVT ppx: lovenox Diet: regular Plan / VTE VTE Prophylaxis Ordered?: Yes ABDOULAYE RUIZ MD Jun 14, 2019 23:54
[2019-06-15] MEDS: AZELASTINE 137MCG NASAL SPY 30 ML (ASTELIN) SCH ×2 (00:31→22:09)
[2019-06-15 06:00] VITALS: BP 131/65
[2019-06-15 06:58] LABS: HEMATOCRIT 35.8 % (36.0-47.0); HEMOGLOBIN 12.3 g/dl (12.0-15.5); MEAN CORPUSCULAR HGB CONC 34.4 g/dl (32.0-36.5); PLATELET COUNT, AUTOMATED 187 10^3/uL (150-450); RED BLOOD COUNT 3.73 10^6/uL (4.00-5.40); WHITE BLOOD COUNT 7.4 10^3/uL (4.0-10.0)
[2019-06-15 07:25] LABS: ALT/SGPT 20 U/L (12-78); BILIRUBIN,TOTAL 0.4 MG/DL (0.2-1.0); BLOOD UREA NITROGEN 17 MG/DL (7-18); CALCIUM LEVEL 9.1 MG/DL (8.8-10.2); CARBON DIOXIDE LEVEL 26 MEQ/L (21-32); CHLORIDE LEVEL 108 MEQ/L (98-107); CREATININE FOR GFR 0.73 MG/DL (0.55-1.30); GLOMERULAR FILTRATION RATE > 60.0 (>39); GLUCOSE, FASTING 89 MG/DL (70-100); MAGNESIUM LEVEL 2.1 MG/DL (1.8-2.4); POTASSIUM SERUM 3.7 MEQ/L (3.5-5.1); SODIUM LEVEL 140 MEQ/L (136-145); TOTAL PROTEIN 6.4 GM/DL (6.4-8.2)
[2019-06-15] MEDS: NS 1,000 ML IV SCH (10:29)
[2019-06-15] MEDS: PRIMIDONE 250 MG TAB PO SCH ×2 (10:29→22:09)
[2019-06-15] MEDS: ENOXAPARIN 40 MG/0.4 ML SYRINGE (J1650) SC SCH (10:30)
[2019-06-15] MEDS: CHLORTHALIDONE 25 MG TAB PO SCH (10:30)
[2019-06-15] MEDS: POTASSIUM CHLORIDE 10 MEQ SR TABLET PO SCH ×2 (10:30→22:09)
--- NOTE | 2019-06-15 10:41 | IPNPDOC ---
Subjective Date Seen The patient was seen on 06/15/19. Subjective Chief Complaint/HPI Pt this morning without new concerns. She states that she is feeling a little better than she was yesterday. She has less dizziness, she notes this is only noted with change of position. General: Denies: Fatigue Constitutional: Denies: Chills, Fever Pulmonary: Denies: Dyspnea, Cough Cardiovascular: Denies: Chest Pain, Palpitations Gastrointestinal: Denies: Nausea, Vomiting, Diarrhea Neurological: Denies: Weakness Psych: Reports: Mood Normal Objective Physical Examination General Exam: Positive: Alert, No Acute Distress, Other (morbidly obese) ENT Exam: Positive: Mucous membr. moist/pink Neck Exam: Positive: Supple; Negative: JVD, thyromegaly Chest Exam: Positive: Clear to auscultation, Normal air movement; Negative: Rales, Rhonchi, Wheezing, Diminished Heart Exam: Positive: Rate Normal, Regular Rhythm, Normal S1, Normal S2; Negative: Murmurs, Rubs Telemetry: Positive: No significant arrhythmia Abdomen Exam: Positive: Normal bowel sounds, Soft, Other (obese); Negative: Tenderness, Hepatospenomegaly Extremity Exam: Negative: Edema Skin Exam: Positive: Nl turgor and temperature; Negative: Breakdown, Lesion Neuro Exam: Positive: Normal Speech, Reflexes 2+ Psych Exam: Positive: Mental status NL, Mood NL, Oriented x 3 Assessment /Plan Problems (1) Benign paroxysmal positional vertigo of right ear Status: Acute Problem Text: 06/15 + L gaze-evoked horizontal jerk nystagmus cw R post canalithiasis; continue modified Patricia per PT, vestibular rest, + mec 12.5 TID (2) Phenytoin toxicity Status: Acute Response to Treatment: Improving Discussed With: Nurse, Patient Problem Specific Plan: Monitor Clinically, Repeat Labs Problem Text: favor sx moreso 2 BPPV flare (similar to 2019 flare)-sudden onset 06/13 AM plan restart HD in AM if <20 06/15 24 usual level ~12-14 (03/25/19 14) HD; pheny ER 200 BID, prim 250/500 (3) Seizure disorder Status: Chronic Response to Treatment: Stable Problem Specific Plan: Monitor Clinically Problem Text: as per pheny toxicity (4) Dizziness Status: Acute Response to Treatment: Stable, Improving Problem Specific Plan: Monitor Clinically Problem Text: PT will cont to work with the pt. (5) Morbid obesity Status: Chronic Response to Treatment: Stable (6) Hypertension, essential Status: Chronic Response to Treatment: Stable Problem Text: stable on HD CTD 25 (7) Physical deconditioning Status: Acute Problem Text: 06/15 not safe for DC home Plan/VTE VTE Prophylaxis Ordered?: Yes VS, I&O, 24H, Fishbone Vital Signs/I&O Vital Signs Date Time Temp Pulse Resp B/P (MAP) Pulse Ox O2 Delivery O2 Flow Rate FiO2 06/15/19 06:00 99.2 78 18 131/65 (87) 96 Room Air I&O- Last 24 Hours up to 6 AM 06/15/19 06:00 Intake Total 900 ml Output Total 400 ml Balance 500 ml Laboratory Data 24H LABS Laboratory Tests 2 06/14/19 17:35: Immature Granulocyte % (Auto) 0.6, Neutrophils (%) (Auto) 57.5, Lymphocytes (%) (Auto) 26.9, Monocytes (%) (Auto) 12.6H, Eosinophils (%) (Auto) 2.0, Basophils (%) (Auto) 0.4, Neutrophils # (Auto) 4.1, Lymphocytes # (Auto) 1.9, Monocytes # (Auto) 0.9H, Eosinophils # (Auto) 0.1, Basophils # (Auto) 0.0, Nucleated Red Blood Cells % (auto) 0.0, Anion Gap 5L, Glomerular Filtration Rate > 60.0, Calcium Level 9.6, Magnesium Level 2.1, Total Bilirubin 0.3, Aspartate Amino Transf (AST/SGOT) 22, Alanine Aminotransferase (ALT/SGPT) 23, Alkaline Phosphatase 141H, Total Creatine Kinase 39, Creatine Kinase MB < 1.0, Creatine Kinase MB Relative Index 2.56, Troponin I < 0.02, Total Protein 6.5, Albumin 3.3, Albumin/Globulin Ratio 1.03, Phenytoin (Dilantin) Level 24.1H 06/14/19 18:53: 06/15/19 06:39: Nucleated Red Blood Cells % (auto) 0.0, Anion Gap 6L, Glomerular Filtration Rate > 60.0, Calcium Level 9.1, Magnesium Level 2.1, Total Bilirubin 0.4, Aspartate Amino Transf (AST/SGOT) 21, Alanine Aminotransferase (ALT/SGPT) 20, Alkaline Phosphatase 127H, Total Protein 6.4, Albumin 3.0L, Albumin/Globulin Ratio 0.88L, Phenytoin (Dilantin) Level 23.2H CBC/BMP Laboratory Tests 06/14/19 17:35 06/15/19 06:39 ISABEL BONILLA PA-C Jun 15, 2019 10:41 Suhail Garcia M.D. Jun 15, 2019 17:54
[2019-06-15 13:05] LABS: ALT/SGPT 21 U/L (12-78); BILIRUBIN,TOTAL 0.4 MG/DL (0.2-1.0); BLOOD UREA NITROGEN 18 MG/DL (7-18); CALCIUM LEVEL 9.3 MG/DL (8.8-10.2); CARBON DIOXIDE LEVEL 30 MEQ/L (21-32); CHLORIDE LEVEL 107 MEQ/L (98-107); CREATININE FOR GFR 0.75 MG/DL (0.55-1.30); GLOMERULAR FILTRATION RATE > 60.0 (>39); GLUCOSE, FASTING 93 MG/DL (70-100); PHENYTOIN (DILANTIN) 22.3 UG/ML (10.0-20.0); POTASSIUM SERUM 3.7 MEQ/L (3.5-5.1); SODIUM LEVEL 139 MEQ/L (136-145)
[2019-06-15 14:37] VITALS: BP 135/61
[2019-06-15] MEDS ORDERED: MECLIZINE 12.5 MG TAB PO PRN (18:00)
[2019-06-15 22:00] VITALS: BP 129/81
[2019-06-16 06:00] VITALS: BP 129/60
[2019-06-16 07:13] LABS: BASO % 0.6 % (0.0-1.0); EOS # 0.3 10^3/uL (0.0-0.5); EOS % 4.2 % (0.0-3.0); HEMATOCRIT 37.2 % (36.0-47.0); HEMOGLOBIN 12.4 g/dl (12.0-15.5); LYMPH # 2.5 10^3/uL (1.5-5.0); MEAN CORPUSCULAR HEMOGLOBIN 32.1 pg (27.0-33.0); MEAN CORPUSCULAR HGB CONC 33.3 g/dl (32.0-36.5); MEAN CORPUSCULAR VOLUME 96.4 fl (80.0-96.0); MONO % 13.9 % (0.0-5.0); NEUTROPHILS # 3.1 10^3/uL (1.5-8.5); PLATELET COUNT, AUTOMATED 188 10^3/uL (150-450); RED BLOOD COUNT 3.86 10^6/uL (4.00-5.40); WHITE BLOOD COUNT 6.9 10^3/uL (4.0-10.0)
[2019-06-16 08:00] VITALS: BP 150/81
--- NOTE | 2019-06-16 08:14 | IPNPDOC ---
Subjective Date Seen The patient was seen on 06/16/19. Subjective Chief Complaint/HPI Feels better overall - less dizzy but has not been out of bed much Constitutional: Denies: Chills, Fever Pulmonary: Denies: Dyspnea, Cough Cardiovascular: Denies: Chest Pain, Palpitations, Orthopnea Gastrointestinal: Denies: Nausea, Vomiting, Abdominal Pain, Diarrhea, Constipation Objective Physical Examination General Exam: Positive: Alert, No Acute Distress, Other (morbidly obese) Neck Exam: Negative: thyromegaly Chest Exam: Positive: Clear to auscultation, Normal air movement; Negative: Rales, Rhonchi, Wheezing, Diminished Heart Exam: Positive: Rate Normal, Regular Rhythm, Normal S1, Normal S2; Negative: Murmurs, Rubs Telemetry: Positive: No significant arrhythmia Abdomen Exam: Positive: Normal bowel sounds, Soft, Other (obese); Negative: Tenderness, Hepatospenomegaly Extremity Exam: Negative: Edema Neuro Exam: Positive: Normal Speech, Reflexes 2+ Psych Exam: Positive: Mental status NL, Mood NL, Oriented x 3 Assessment /Plan Problems (1) Benign paroxysmal positional vertigo of right ear Status: Acute Problem Text: 06/15 + L gaze-evoked horizontal jerk nystagmus cw R post canalithiasis; continue modified Patricia per PT, vestibular rest, + mec 12.5 TID (2) Phenytoin toxicity Status: Acute Response to Treatment: Improving Discussed With: Nurse, Patient Problem Specific Plan: Monitor Clinically, Repeat Labs Problem Text: 06/16 - Dilantin level remains elevated but rending down with Di lantin on hold (Of note level was therapeutic in March- dose not changed and patient denies any chance that she took too much - only med change was some prednisone give to her by ) favor sx moreso 2 BPPV flare (similar to 2019 flare)-sudden onset 06/13 AM plan restart HD in AM if <20 06/15 usual level ~12-14 (03/25/19 14) HD; pheny ER 200 BID, prim 250/500 (3) Seizure disorder Status: Chronic Response to Treatment: Stable Problem Specific Plan: Monitor Clinically Problem Text: 06/16 - Primidone level was a little elevated in March - repeat level pending on admission Dilantin on hold currently (4) Dizziness Status: Acute Response to Treatment: Stable, Improving Problem Specific Plan: Monitor Clinically Problem Text: PT will cont to work with the pt. (5) Morbid obesity Status: Chronic Response to Treatment: Stable (6) Hypertension, essential Status: Chronic Response to Treatment: Stable Problem Text: stable on HD CTD 25 (7) Physical deconditioning Status: Acute Problem Text: 06/15 not safe for DC home Plan/VTE VTE Prophylaxis Ordered?: Yes Plan Therapy: PT, OT VS, I&O, 24H, Fishbone Vital Signs/I&O Vital Signs Date Time Temp Pulse Resp B/P (MAP) Pulse Ox O2 Delivery O2 Flow Rate FiO2 06/16/19 06:00 98.6 74 18 129/60 (83) 88 Room Air I&O- Last 24 Hours up to 6 AM 06/16/19 05:59 Intake Total 3130 ml Output Total 3550 ml Balance -420 ml Laboratory Data 24H LABS Laboratory Tests 2 06/15/19 12:19: Anion Gap 2L, Glomerular Filtration Rate > 60.0, Calcium Level 9.3, Total Bili william 0.4, Aspartate Amino Transf (AST/SGOT) 25, Alanine Aminotransferase (ALT/SGPT) 21, Alkaline Phosphatase 127H, Total Protein 6.0L, Albumin 3.0L, Albumin/Globulin Ratio 1.00, Phenytoin (Dilantin) Level 22.3H 06/16/19 06:40: Phenytoin (Dilantin) Level 23.1H, Immature Granulocyte % (Auto) 0.3, Neutrophils (%) (Auto) 45.0, Lymphocytes (%) (Auto) 36.0, Monocytes (%) (Auto) 13.9H, Eosinophils (%) (Auto) 4.2H, Basophils (%) (Auto) 0.6, Neutrophils # (Auto) 3.1, Lymphocytes # (Auto) 2.5, Monocytes # (Auto) 1.0H, Eosinophils # (Auto) 0.3, Basophils # (Auto) 0.0, Nucleated Red Blood Cells % (auto) 0.0 CBC/BMP Laboratory Tests 06/15/19 12:19 06/16/19 06:40 ALBERTINA MANCERA PA-C Jun 16, 2019 08:14
[2019-06-16] MEDS: CHLORTHALIDONE 25 MG TAB PO SCH (09:09)
[2019-06-16] MEDS: POTASSIUM CHLORIDE 10 MEQ SR TABLET PO SCH ×2 (09:10→22:15)
[2019-06-16] MEDS: PRIMIDONE 250 MG TAB PO SCH ×2 (09:10→22:14)
[2019-06-16] MEDS: ENOXAPARIN 40 MG/0.4 ML SYRINGE (J1650) SC SCH (09:11)
[2019-06-16 14:00] VITALS: BP 143/83
[2019-06-16 20:15] VITALS: BP 142/71
[2019-06-16] MEDS: AZELASTINE 137MCG NASAL SPY 30 ML (ASTELIN) SCH (22:15)
[2019-06-17 05:10] VITALS: BP 150/81
[2019-06-17] MEDS: CHLORTHALIDONE 25 MG TAB PO SCH (08:23)
[2019-06-17] MEDS: PRIMIDONE 250 MG TAB PO SCH (08:23)
[2019-06-17] MEDS: POTASSIUM CHLORIDE 10 MEQ SR TABLET PO SCH (08:23)
[2019-06-17] MEDS: ENOXAPARIN 40 MG/0.4 ML SYRINGE (J1650) SC SCH (08:23)
[2019-06-17] MEDS ORDERED: DILA100C PO (08:57)
[2019-06-17] MEDS ORDERED: MECL12.589 PO (08:57)
--- NOTE | 2019-06-17 18:32 | DSES ---
DATE OF ADMISSION: 06/14/2019 DATE OF DISCHARGE: 06/17/2019 PRIMARY CARE PROVIDER: Dr. Anibal Green ATTENDING TODAY: Dr. Suhail Garcia HISTORY: This is a 78-year-old female patient who presented to [facility] Emergency Room with increased dizziness. She was evaluated and found to have phenytoin toxicity. She was admitted to the hospital for further management and monitoring. During her hospitalization, she has remained medically stable. It is felt as though the dizziness is likely vertigo as left gaze evoked horizontal jerk nystagmus consistent with right post canalithiasis. She was seen by physical therapy with modified Patricia maneuvers, vestibular rest and meclizine three times daily. Her dizziness has improved. She is moving around her room safely and has been cleared by physical therapy, although they do recommend continued outpatient vestibular physical therapy (PT). Her dilantin level this morning has dropped down to 19.7. She has been taking 200 mg twice daily consistently for many years. Recently reports that the only change has been that she has recently been placed on prednisone by urgent care. At this point, I am going to drop her dose of Dilantin down to 100 mg three times daily and reducing from 400 mg to 300 mg a day. She will need outpatient fallopian tube and have her dilantin level rechecked. She is not to start this new dose until tomorrow; she understands this. DISCHARGE DIAGNOSES: 1. Benign paroxysmal positional vertigo of the right ear. 2. Phenytoin toxicity. 3. Seizure disorder. 4. Morbid obesity. 5. Hypertension. 6. Physical deconditioning. DISCHARGE MEDICATIONS: - meclizine 12.5 mg by mouth three times a day as needed for dizziness - phenytoin 100 mg by mouth three times a day - acetaminophen 650 mg every 4 hours as needed for pain - azelastine two sprays into nares before bed - chlorthalidone 25 mg daily - potassium chloride 10 mEq twice a day - primidone 500 mg before bed and 250 mg in the morning Her activity should be as tolerated. Her diet is regular.
== END 2019-06-17 10:20 | disposition home or self-care (01) | DRG 149 ==
LOC: EDBD 16:43 → M ED 16:43 → M ED INP 20:55 → ENRESERVDT 22:08 → ENRESERVTM 22:08 → M MS5PR 22:58
PROVIDERS: ADMIT Internal Medicine; ATTEND Family Medicine
DX: H81.11 Benign paroxysmal vertigo, right ear (principal); M19.90 Unspecified osteoarthritis, unspecified site; E87.6 Hypokalemia; G40.909 Epilepsy, unspecified, not intractable, without status epilepticus; I10 Essential (primary) hypertension; E66.01 Morbid (severe) obesity due to excess calories; Z79.899 Other long term (current) drug therapy; Z88.0 Allergy status to penicillin; G47.33 Obstructive sleep apnea (adult) (pediatric)

== ENCOUNTER → 2019-06-24 | Outpatient (REF) | payer MEDICARE, OTHER ==
[~2019-06-24] MED LIST changes: +APAP325T4 PO; +MECL12.589 PO; +POTA10TA16 PO; +PRED20TA PO
== END ==
LOC: M SFHCADAM 09:25
PROVIDERS: ATTEND Family Medicine
DX: F43.23 Adjustment disorder with mixed anxiety and depressed mood (principal)
CPT/HCPCS: 80185; 80188; 99495; G0463

== ENCOUNTER 2019-07-13 13:45 | Outpatient (RCR) | payer MEDICARE, OTHER | END 2019-07-17 | LOC: M PT 13:45 | PROVIDERS: ATTEND Physician Assistant Medical | DX: H81.13 Benign paroxysmal vertigo, bilateral (principal); H81.90 Unspecified disorder of vestibular function, unspecified ear ==

== ENCOUNTER 2019-07-20 13:37 | Outpatient (RCR) | payer MEDICARE, OTHER | END 2019-08-17 | LOC: M PT 13:37 | PROVIDERS: ATTEND Physician Assistant Medical | DX: Z47.89 Encounter for other orthopedic aftercare (principal) ==

== ENCOUNTER → 2019-09-28 | Outpatient (CLI) | payer MEDICARE, OTHER ==
[~2019-09-28] MED LIST changes: -MECL12.589 PO; +MECL12.590 PO
== END ==
LOC: M WUC 12:21
PROVIDERS: ATTEND Family Medicine
DX: F43.23 Adjustment disorder with mixed anxiety and depressed mood (principal)

== ENCOUNTER → 2020-03-21 | Outpatient (REF) | payer MEDICARE, OTHER ==
[~2020-03-21] MED LIST changes: +MECL12.589 PO; -MECL12.590 PO
[2020-03-21 17:27] LABS: HEMOGLOBIN 13.2 g/dl (12.0-15.5); MEAN CORPUSCULAR HEMOGLOBIN 33.2 pg (27.0-33.0); MEAN CORPUSCULAR HGB CONC 33.8 g/dl (32.0-36.5); PLATELET COUNT, AUTOMATED 241 10^3/uL (150-450); RED BLOOD COUNT 3.98 10^6/uL (4.00-5.40); WHITE BLOOD COUNT 7.2 10^3/uL (4.0-10.0)
[2020-03-21 21:31] LABS: ALBUMIN 3.4 GM/DL (3.2-5.2); ALT/SGPT 29 U/L (12-78); BILIRUBIN,TOTAL 0.5 MG/DL (0.2-1.0); BLOOD UREA NITROGEN 17 MG/DL (7-18); CARBON DIOXIDE LEVEL 25 MEQ/L (21-32); CHLORIDE LEVEL 106 MEQ/L (98-107); CHOLESTEROL LEVEL 190 MG/DL (<200); CHOLESTEROL RISK RATIO 3.064 (<5); CREATININE FOR GFR 0.91 MG/DL (0.55-1.30); FREE T4 0.98 NG/DL (0.76-1.46); GLOMERULAR FILTRATION RATE > 60.0 (>39); GLUCOSE, FASTING 114 MG/DL (70-100); HDL CHOLESTEROL 62 MG/DL (>40); LDL CHOLESTEROL 104 MG/DL (<100); NON-HDL-C 128 MG/DL; PHENYTOIN (DILANTIN) 3.3 UG/ML (10.0-20.0); POTASSIUM SERUM 3.9 MEQ/L (3.5-5.1); SODIUM LEVEL 140 MEQ/L (136-145); TOTAL PROTEIN 7.1 GM/DL (6.4-8.2); TRIGLYCERIDES LEVEL 121 MG/DL (<150)
== END ==
LOC: M LABWUC 15:52
PROVIDERS: ATTEND Family Medicine
DX: E03.9 Hypothyroidism, unspecified (principal); E74.9 Disorder of carbohydrate metabolism, unspecified; E78.2 Mixed hyperlipidemia; G40.89 Other seizures; Z79.899 Other long term (current) drug therapy

== ENCOUNTER → 2020-09-25 | Outpatient (CLI) | payer MEDICARE, OTHER ==
[~2020-09-25] MED LIST changes: +MECL-136 PO; -MECL12.589 PO
[2020-09-25 16:48] LABS: ALBUMIN 3.6 GM/DL (3.2-5.2); BLOOD UREA NITROGEN 18 MG/DL (7-18); CALCIUM LEVEL 10.7 MG/DL (8.8-10.2); CARBON DIOXIDE LEVEL 27 MEQ/L (21-32); CHLORIDE LEVEL 105 MEQ/L (98-107); CREATININE FOR GFR 0.82 MG/DL (0.55-1.30); GLOMERULAR FILTRATION RATE > 60.0 (>39); GLUCOSE, FASTING 102 MG/DL (70-100); PHENYTOIN (DILANTIN) 12.9 UG/ML (10.0-20.0); PHOSPHORUS LEVEL 2.3 MG/DL (2.5-4.9); POTASSIUM SERUM 4.1 MEQ/L (3.5-5.1); SODIUM LEVEL 138 MEQ/L (136-145)
== END ==
LOC: M WUC 14:51
PROVIDERS: ATTEND Family Medicine
DX: E83.52 Hypercalcemia (principal); G40.89 Other seizures

== ENCOUNTER → 2021-04-04 | Outpatient (REF) | payer MEDICARE, OTHER ==
[~2021-04-04] MED LIST changes: -KLOR10TA76 PO; +POTA-136 PO
[2021-04-04 16:46] LABS: HEMATOCRIT 37.1 % (36.0-47.0); HEMOGLOBIN 12.4 g/dl (12.0-15.5); MEAN CORPUSCULAR HEMOGLOBIN 33.6 pg (27.0-33.0); MEAN CORPUSCULAR HGB CONC 33.4 g/dl (32.0-36.5); MEAN CORPUSCULAR VOLUME 100.5 fl (80.0-96.0); PLATELET COUNT, AUTOMATED 215 10^3/uL (150-450); RED BLOOD COUNT 3.69 10^6/uL (4.00-5.40); WHITE BLOOD COUNT 6.4 10^3/uL (4.0-10.0)
[2021-04-04 17:16] LABS: ALBUMIN 3.4 GM/DL (3.2-5.2); ALT/SGPT 24 U/L (12-78); BILIRUBIN,TOTAL 0.5 MG/DL (0.2-1.0); BLOOD UREA NITROGEN 16 MG/DL (7-18); CARBON DIOXIDE LEVEL 27 MEQ/L (21-32); CHLORIDE LEVEL 112 MEQ/L (98-107); CHOLESTEROL LEVEL 206 MG/DL (<200); CHOLESTEROL RISK RATIO 3.218 (<5); CREATININE FOR GFR 0.84 MG/DL (0.55-1.30); FREE T4 0.68 NG/DL (0.76-1.46); GLOMERULAR FILTRATION RATE > 60.0 (>39); GLUCOSE, FASTING 95 MG/DL (70-100); HDL CHOLESTEROL 64 MG/DL (>40); LDL CHOLESTEROL 125 MG/DL (<100); NON-HDL-C 142 MG/DL; PHENYTOIN (DILANTIN) 18.4 UG/ML (10.0-20.0); POTASSIUM SERUM 4.2 MEQ/L (3.5-5.1); SODIUM LEVEL 144 MEQ/L (136-145); TOTAL PROTEIN 6.7 GM/DL (6.4-8.2); TRIGLYCERIDES LEVEL 87 MG/DL (<150)
[2021-04-04 17:44] LABS: HEMOGLOBIN A1c 4.9 %
== END ==
LOC: M SFHCADAM 14:17
PROVIDERS: ATTEND Family Medicine
DX: E78.2 Mixed hyperlipidemia (principal); F43.23 Adjustment disorder with mixed anxiety and depressed mood; E03.9 Hypothyroidism, unspecified; E74.9 Disorder of carbohydrate metabolism, unspecified; G40.89 Other seizures; Z79.899 Other long term (current) drug therapy; Z23 Encounter for immunization
CPT/HCPCS: 80053; 80061; 80185; 83036; 84439; 84443; 85027; 90682; G0008; G0463

== ENCOUNTER → 2022-04-19 | Outpatient (CLI) | payer MEDICARE, OTHER ==
[~2022-04-19] MED LIST changes: +POTA-149 PO; -POTA10TA16 PO
[2022-04-19 14:31] LABS: HEMATOCRIT 38.3 % (36.0-47.0); HEMOGLOBIN 13.2 g/dl (12.0-15.5); MEAN CORPUSCULAR HEMOGLOBIN 34.2 pg (27.0-33.0); MEAN CORPUSCULAR HGB CONC 34.5 g/dl (32.0-36.5); MEAN CORPUSCULAR VOLUME 99.2 fl (80.0-96.0); PLATELET COUNT, AUTOMATED 238 10^3/uL (150-450); RED BLOOD COUNT 3.86 10^6/uL (4.00-5.40)
[2022-04-19 14:50] LABS: PHENYTOIN (DILANTIN) 11.7 UG/ML (10.0-20.0)
[2022-04-19 14:52] LABS: ALBUMIN 3.5 G/DL (3.2-5.2); BILIRUBIN,TOTAL 0.5 MG/DL (0.3-1.2); CALCIUM LEVEL 10.9 MG/DL (8.3-10.6); CHOLESTEROL RISK RATIO 3.93 (<5); CREATININE FOR GFR 1.1 MG/DL (0.55-1.30); FREE T4 1.14 NG/DL (0.89-1.76); HDL CHOLESTEROL 47.5 MG/DL (>40); LDL CHOLESTEROL 112.3 MG/DL (<100); POTASSIUM SERUM 3.8 MMOL/L (3.5-5.1); THYROID STIMULATING HORMONE 0.062 uIU/ML (0.55-4.78)
[2022-04-19 14:55] LABS: HEMOGLOBIN A1c 4.6 % (4.0-6.0)
== END ==
LOC: M PLALAB 12:07
PROVIDERS: ATTEND Family Medicine
DX: L50.9 Urticaria, unspecified (principal); E78.2 Mixed hyperlipidemia; E74.9 Disorder of carbohydrate metabolism, unspecified; E03.9 Hypothyroidism, unspecified; G40.89 Other seizures; Z79.899 Other long term (current) drug therapy

== ENCOUNTER → 2022-04-19 | Outpatient (CLI) | payer MEDICARE, OTHER | LOC: M WHC 11:04 | PROVIDERS: ATTEND Family Medicine | DX: Z12.31 Encounter for screening mammogram for malignant neoplasm of breast (principal); M81.0 Age-related osteoporosis without current pathological fracture; E55.9 Vitamin D deficiency, unspecified; E03.9 Hypothyroidism, unspecified; G47.33 Obstructive sleep apnea (adult) (pediatric); R60.9 Edema, unspecified; G40.89 Other seizures; F43.23 Adjustment disorder with mixed anxiety and depressed mood; E66.9 Obesity, unspecified; E74.9 Disorder of carbohydrate metabolism, unspecified; E78.2 Mixed hyperlipidemia; Z79.899 Other long term (current) drug therapy ==

== ENCOUNTER → 2023-01-21 | Outpatient (CLI) | payer MEDICARE, OTHER ==
[~2023-01-21] MED LIST changes: -PAXI20TA29 PO; +PAXI20TA30 PO
[2023-01-21 18:43] LABS: ALBUMIN 3.3 G/DL (3.2-5.2); BLOOD UREA NITROGEN 22 MG/DL (9-23); CALCIUM LEVEL 10.9 MG/DL (8.3-10.6); CARBON DIOXIDE LEVEL 27 MMOL/L (20-31); CHLORIDE LEVEL 110 MMOL/L (98-107); CREATININE FOR GFR 0.83 MG/DL (0.55-1.30); GLOMERULAR FILTRATION RATE > 60.0 (>32); GLUCOSE, FASTING 96 MG/DL (74-106); PHOSPHORUS LEVEL 2.7 MG/DL (2.4-5.1); POTASSIUM SERUM 4.5 MMOL/L (3.5-5.1); SODIUM LEVEL 142 MMOL/L (136-145)
[2023-01-21 18:44] LABS: PTH INTACT 164.8 PG/ML (18.5-88.0)
[2023-01-21 18:45] LABS: FREE T4 1.15 NG/DL (0.89-1.76); TOTAL 25(OH) VITAMIN D 38.3 NG/ML (20.0-100.0)
== END ==
LOC: M PLALAB 15:03
PROVIDERS: ATTEND Family Medicine
DX: E03.9 Hypothyroidism, unspecified (principal); M81.0 Age-related osteoporosis without current pathological fracture

== ENCOUNTER → 2023-01-27 | Outpatient (CLI) | payer MEDICARE, OTHER | LOC: M PLALAB 15:19 | PROVIDERS: ATTEND Family Medicine | DX: E03.9 Hypothyroidism, unspecified (principal) ==

== ENCOUNTER → 2023-05-23 | Outpatient (REF) | payer MEDICARE, OTHER ==
[2023-05-23 17:20] LABS: ALBUMIN 3.2 G/DL (3.2-5.2); ALKALINE PHOSPHATASE 192 U/L (46-116); ALT/SGPT 26 U/L (7.0-40); AST/SGOT 28 U/L (<34); BILIRUBIN,TOTAL 0.5 MG/DL (0.3-1.2); BLOOD UREA NITROGEN 19 MG/DL (9-23); CALCIUM LEVEL 10.2 MG/DL (8.3-10.6); CARBON DIOXIDE LEVEL 27 MMOL/L (20-31); CHLORIDE LEVEL 109 MMOL/L (98-107); CREATININE FOR GFR 0.72 MG/DL (0.55-1.30); GLOMERULAR FILTRATION RATE > 60.0 (>32); GLUCOSE, FASTING 113 MG/DL (74-106); POTASSIUM SERUM 3.9 MMOL/L (3.5-5.1); SODIUM LEVEL 142 MMOL/L (136-145); TOTAL PROTEIN 6.4 G/DL (5.7-8.2)
== END ==
LOC: M LABWUC 16:02
PROVIDERS: ATTEND Internal Medicine Endocrinology, Diabetes & Metabolism
DX: E21.0 Primary hyperparathyroidism (principal)

== ENCOUNTER → 2023-06-13 | Outpatient (CLI) | payer MEDICARE, OTHER ==
[2023-06-13 15:44] LABS: IONIZED CALCIUM 5.1 MG/DL (4.5-5.3)
[2023-06-13 16:20] LABS: CALCIUM LEVEL 10.2 MG/DL (8.3-10.6); PHOSPHORUS LEVEL 2.3 MG/DL (2.4-5.1); PTH INTACT 52.7 PG/ML (18.5-88.0)
== END ==
LOC: M LAB 15:21
PROVIDERS: ATTEND Internal Medicine Endocrinology, Diabetes & Metabolism
DX: E21.0 Primary hyperparathyroidism (principal)

== ENCOUNTER → 2023-08-14 | Outpatient (CLI) | payer MEDICARE, OTHER ==
[2023-08-14 17:25] LABS: CALCIUM LEVEL 9.1 MG/DL (8.3-10.6); PHOSPHORUS LEVEL 2.8 MG/DL (2.4-5.1)
[2023-08-14 17:26] LABS: PTH INTACT 79.7 PG/ML (18.5-88.0)
== END ==
LOC: M LAB 16:34
PROVIDERS: ATTEND Nurse Practitioner Family
DX: E21.0 Primary hyperparathyroidism (principal)

== ENCOUNTER → 2023-12-24 | Outpatient (CLI) | payer MEDICARE, OTHER ==
[2023-12-24 19:25] LABS: CALCIUM LEVEL 9.1 MG/DL (8.3-10.6); PHOSPHORUS LEVEL 3.4 MG/DL (2.4-5.1); PTH INTACT 230.1 PG/ML (18.5-88.0)
== END ==
LOC: M WUC 15:42
PROVIDERS: ATTEND Nurse Practitioner Family
DX: E21.0 Primary hyperparathyroidism (principal)

== ENCOUNTER → 2024-05-10 | Outpatient (CLI) | payer MEDICARE, OTHER ==
[~2024-05-10] MED LIST changes: -AZEL0.1S NARES; +AZEL137S8 NARES
== END ==
LOC: M WHC 09:21
PROVIDERS: ATTEND Nurse Practitioner Family
DX: M81.0 Age-related osteoporosis without current pathological fracture (principal)

== ENCOUNTER → 2024-05-10 | Outpatient (CLI) | payer MEDICARE, OTHER ==
[2024-05-10 14:17] LABS: CALCIUM LEVEL 9.7 MG/DL (8.3-10.6); PHOSPHORUS LEVEL 2.6 MG/DL (2.4-5.1)
[2024-05-10 14:19] LABS: TOTAL 25(OH) VITAMIN D 57.1 NG/ML (20.0-100.0)
[2024-05-10 14:30] LABS: PTH INTACT 94.6 PG/ML (18.5-88.0)
== END ==
LOC: M PLALAB 10:13
PROVIDERS: ATTEND Nurse Practitioner Family
DX: E21.0 Primary hyperparathyroidism (principal)

== ENCOUNTER → 2024-08-10 | Outpatient (REF) | payer MEDICARE, OTHER ==
[2024-08-10 18:04] LABS: HEMOGLOBIN 12.9 g/dl (12.0-15.5); MEAN CORPUSCULAR HEMOGLOBIN 33.9 pg (27.0-33.0); MEAN CORPUSCULAR HGB CONC 33.1 g/dl (32.0-36.5); MEAN CORPUSCULAR VOLUME 102.6 fl (80.0-96.0); PLATELET COUNT, AUTOMATED 243 10^3/uL (150-450)
[2024-08-10 18:24] LABS: HEMOGLOBIN A1c 4.9 % (4.0-6.0)
[2024-08-10 18:36] LABS: ALBUMIN 3.1 G/DL (3.2-5.2); ALKALINE PHOSPHATASE 170 U/L (35-104); ALT/SGPT 26 U/L (7.0-40); AST/SGOT 31 U/L (<34); BILIRUBIN,TOTAL 0.7 MG/DL (0.3-1.2); BLOOD UREA NITROGEN 15 MG/DL (9-23); CALCIUM LEVEL 9.7 MG/DL (8.3-10.6); CARBON DIOXIDE LEVEL 26 MMOL/L (20-31); CHLORIDE LEVEL 107 MMOL/L (98-107); CHOLESTEROL LEVEL 187 MG/DL (<200); CHOLESTEROL RISK RATIO 4.05 (<5); GLOMERULAR FILTRATION RATE > 60.0 (>32); GLUCOSE, FASTING 105 MG/DL (74-106); HDL CHOLESTEROL 46.1 MG/DL (>40); LDL CHOLESTEROL 119.3 MG/DL (<100); NON-HDL-C 140.9 MG/DL; POTASSIUM SERUM 4.5 MMOL/L (3.5-5.1); SODIUM LEVEL 143 MMOL/L (136-145); TOTAL PROTEIN 6.5 G/DL (5.7-8.2); TRIGLYCERIDES LEVEL 108 MG/DL (<150)
[2024-08-10 18:38] LABS: THYROID STIMULATING HORMONE 0.039 uIU/ML (0.55-4.78)
[2024-08-10 18:39] LABS: FREE T4 1.09 NG/DL (0.89-1.76)
== END ==
LOC: M SFHCADAM 15:16
PROVIDERS: ATTEND Family Medicine
DX: E03.9 Hypothyroidism, unspecified (principal); E83.52 Hypercalcemia; F43.23 Adjustment disorder with mixed anxiety and depressed mood; E74.9 Disorder of carbohydrate metabolism, unspecified; Z79.899 Other long term (current) drug therapy

== ENCOUNTER → 2024-08-23 | Outpatient (CLI) | payer MEDICARE, OTHER ==
[2024-08-23 18:06] LABS: BLOOD UREA NITROGEN 21 MG/DL (9-23); CALCIUM LEVEL 10.3 MG/DL (8.3-10.6); CARBON DIOXIDE LEVEL 28 MMOL/L (20-31); CHLORIDE LEVEL 108 MMOL/L (98-107); CREATININE FOR GFR 0.81 MG/DL (0.55-1.30); GLOMERULAR FILTRATION RATE > 60.0 (>32); GLUCOSE, FASTING 79 MG/DL (74-106); POTASSIUM SERUM 4.3 MMOL/L (3.5-5.1); SODIUM LEVEL 144 MMOL/L (136-145)
== END ==
LOC: M WUC 14:44
PROVIDERS: ATTEND Nurse Practitioner Family
DX: E21.0 Primary hyperparathyroidism (principal)

== ENCOUNTER → 2024-11-25 | Outpatient (CLI) | payer MEDICARE, OTHER ==
[2024-11-25 20:00] LABS: TOTAL 25(OH) VITAMIN D 54.7 NG/ML (20.0-100.0)
[2024-11-25 20:02] LABS: CALCIUM LEVEL 9.1 MG/DL (8.3-10.6); CARBON DIOXIDE LEVEL 26.0 MMOL/L (20-31); CHLORIDE LEVEL 107.0 MMOL/L (98-107); CREATININE FOR GFR 0.83 MG/DL (0.55-1.30); GLOMERULAR FILTRATION RATE 70.3 (>32); POTASSIUM SERUM 4.1 MMOL/L (3.5-5.1); SODIUM LEVEL 145.0 MMOL/L (136-145)
== END ==
LOC: M WUC 14:39
PROVIDERS: ATTEND Nurse Practitioner Family
DX: M81.0 Age-related osteoporosis without current pathological fracture (principal)

== ENCOUNTER → 2025-02-04 | Outpatient (CLI) | payer MEDICARE, OTHER ==
[2025-02-04 19:00] LABS: PLATELET COUNT, AUTOMATED 221 10^3/uL (150-450)
[2025-02-04 19:19] LABS: ALT/SGPT 27.0 U/L (7.0-40); AST/SGOT 36.0 U/L (<34); CALCIUM LEVEL 9.1 MG/DL (8.3-10.6); CARBON DIOXIDE LEVEL 28.0 MMOL/L (20-31); CHLORIDE LEVEL 108.0 MMOL/L (98-107); CHOLESTEROL LEVEL 179.0 MG/DL (<200); CHOLESTEROL RISK RATIO 3.45 (<5); CREATININE FOR GFR 0.81 MG/DL (0.55-1.30); GLOMERULAR FILTRATION RATE 72.4 (>32); LDL CHOLESTEROL 106.8 MG/DL (<100); NON-HDL-C 127.2 MG/DL; POTASSIUM SERUM 4.2 MMOL/L (3.5-5.1); SODIUM LEVEL 142.0 MMOL/L (136-145); TRIGLYCERIDES LEVEL 102.0 MG/DL (<150)
[2025-02-04 19:20] LABS: TOTAL 25(OH) VITAMIN D 39.2 NG/ML (20.0-100.0)
[2025-02-04 19:21] LABS: FREE T4 1.05 NG/DL (0.89-1.76)
[2025-02-04 19:27] LABS: ESTIMATED AVERAGE GLUCOSE 94.0 MG/DL (60-110)
== END ==
LOC: M WUC 15:37
PROVIDERS: ATTEND Family Medicine
DX: E03.9 Hypothyroidism, unspecified (principal); E78.2 Mixed hyperlipidemia; M81.0 Age-related osteoporosis without current pathological fracture; E66.01 Morbid (severe) obesity due to excess calories; Z79.899 Other long term (current) drug therapy

== ENCOUNTER → 2025-04-20 | Outpatient (REF) | payer MEDICARE, OTHER ==
[2025-04-20 17:44] LABS: BASO # 0.1 10^3/uL (0.0-0.2); BASO % 1.0 % (0.0-1.0); EOS # 0.4 10^3/uL (0.0-0.5); EOS % 4.2 % (0.0-3.0); LYMPH # 2.9 10^3/uL (1.5-5.0); LYMPH % 30.5 % (24.0-44.0); MONO # 1.3 10^3/uL (0.0-0.8); MONO % 13.6 % (2.0-8.0); NEUTROPHILS # 4.8 10^3/uL (1.5-8.5); NEUTROPHILS % 50.3 % (36.0-66.0); PLATELET COUNT, AUTOMATED 255 10^3/uL (150-450)
[2025-04-20 18:15] LABS: ALT/SGPT 27.0 U/L (7.0-40); AST/SGOT 39.0 U/L (<34); CALCIUM LEVEL 9.3 MG/DL (8.3-10.6); CARBON DIOXIDE LEVEL 25.0 MMOL/L (20-31); CHLORIDE LEVEL 107.0 MMOL/L (98-107); CREATININE FOR GFR 0.91 MG/DL (0.55-1.30); GLOMERULAR FILTRATION RATE 63.0 (>32); MAGNESIUM LEVEL 1.6 MG/DL (1.8-2.4); POTASSIUM SERUM 4.1 MMOL/L (3.5-5.1); SODIUM LEVEL 145.0 MMOL/L (136-145)
[2025-04-20 18:17] LABS: FREE T4 1.23 NG/DL (0.89-1.76)
== END ==
LOC: M SFHCADAM 13:49
PROVIDERS: ATTEND Physician Assistant Medical
DX: I49.9 Cardiac arrhythmia, unspecified (principal)

== ENCOUNTER → 2025-04-26 | Outpatient (CLI) | payer MEDICARE, OTHER | LOC: M WUC 13:33 | PROVIDERS: ATTEND Physician Assistant Medical | DX: E83.42 Hypomagnesemia (principal) ==

== ENCOUNTER → 2025-05-06 | Outpatient (REF) | payer MEDICARE, OTHER ==
[2025-05-06 17:31] LABS: CALCIUM LEVEL 9.2 MG/DL (8.3-10.6); CARBON DIOXIDE LEVEL 25.0 MMOL/L (20-31); CHLORIDE LEVEL 109.0 MMOL/L (98-107); CREATININE FOR GFR 0.85 MG/DL (0.55-1.30); GLOMERULAR FILTRATION RATE 68.4 (>32); POTASSIUM SERUM 4.5 MMOL/L (3.5-5.1); SODIUM LEVEL 144.0 MMOL/L (136-145)
== END ==
LOC: M SFHCADAM 11:03
PROVIDERS: ATTEND Family Medicine
DX: I48.19 Other persistent atrial fibrillation (principal); E83.42 Hypomagnesemia